=== PATIENT | male | born 1985 | race Hispanic/Latino ===

== ENCOUNTER 2017-03-23 12:22 | Emergency (ER) | payer MEDICAID ==
[2017-03-23 12:26] VITALS: BP 131/87; PULSE 74; RESP 18; TEMP 98.3; O2SAT 98
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
--- NOTE | 2017-03-23 13:40 | RAD ---
PROCEDURE: Right Knee Radiographs. HISTORY: COMPARISON: None available FINDINGS: BONES: No acute displaced fracture. JOINTS: No dislocation. JOINT EFFUSION: No significant joint effusion. OTHER FINDINGS: None. IMPRESSION: No acute displaced fracture, dislocation, or significant joint effusion identified. If symptoms persist, or if there is continued clinical concern, x-ray follow-up in 7-10 days should be considered.
== END 2017-03-23 14:02 | disposition home or self-care (01) ==
LOC: H.ER 12:22
DX: S16.1XXA Strain of muscle, fascia and tendon at neck level, initial encounter (principal); M25.561 Pain in right knee; V03.10XA Pedestrian on foot injured in collision with car, pick-up truck or van in traffic accident, initial encounter; Y92.410 Unspecified street and highway as the place of occurrence of the external cause